=== PATIENT | male | born 1955 | race African-American/Black ===

== ENCOUNTER 2018-11-03 09:58 | Day surgery (SDC) | payer OTHER ==
[2018-11-03] MEDS ORDERED: FENTAnyl 50 MCG/ML VIAL (12:15)
[2018-11-03] MEDS ORDERED: MIDAZOLAM 1 MG/ML 2 ML INJ (12:15)
== END 2018-11-03 16:39 | disposition home or self-care (01) ==
LOC: GIL 09:58
DX: Z12.11 Encounter for screening for malignant neoplasm of colon (principal); D12.4 Benign neoplasm of descending colon; K57.30 Diverticulosis of large intestine without perforation or abscess without bleeding
CPT/HCPCS: 45380; 88305